=== PATIENT | male | born 1970 | race Hispanic/Latino ===

== ENCOUNTER 2018-08-27 09:08 | Day surgery (SDC) | payer BC ==
[2018-08-27] MEDS ORDERED: SUBLIMAZE IV PRN (10:10)
--- NOTE | 2018-08-27 10:10 | Anesthesia Consultation ---
Anesthesia Consult and Med Hx Date of service: 08/27/18 - Airway Anesthetic Teeth Evaluation: Good ROM Head & Neck: Adequate Mental/Hyoid Distance: Adequate Mallampati Class: Class II Intubation Access Assessment: Probably Good - Pulmonary Exam CTA: Yes - Cardiac Exam Cardiac Exam: RRR - Pre-Operative Health Status ASA Pre-Surgery Classification: ASA2 Proposed Anesthetic Plan: General - Pulmonary Hx Smoking: No (chewing tobacco only; no smoking) Hx Asthma: No Hx Respiratory Symptoms: No Hx Sleep Apnea: No (ALANIS PRE SCREEN LOW RISK.) - Cardiovascular System Hx Hypertension: No (no prior hx however BP elevated in [facility]. Patient does not follow with PCP.) Hx Heart Attack/AMI: No Hx Percutaneous Transluminal Coronary Angioplasty (PTCA): No - Central Nervous System Hx Seizures: No CVA: No Hx Back Pain: Yes (associated with renal stone) - Gastrointestinal Hx Gastroesophageal Reflux Disease: No - Endocrine Hx Renal Disease: No Hx Liver Disease: No Hx Insulin Dependent Diabetes: No Hx Non-Insulin Dependent Diabetes: No Hx Thyroid Disease: No - Other Systems Hx Obesity: No - Additional Comments Anesthesia Medical History Comments: No hx anesthetic complications.
--- NOTE | 2018-08-27 10:10 | Anesthesia Day of Surgery ---
Anesthesia Day of Surgery - Day of Surgery Patient Examined: Yes Patient H&P Reviewed: Yes Patient is NPO: Yes
[2018-08-27] MEDS ORDERED: SUBLIMAZE ONE (10:54)
[2018-08-27] MEDS ORDERED: XYLOCAINE MPF 2% ONE (10:54)
[2018-08-27] MEDS ORDERED: DIPRIVAN 10 MG/ML IV ONE (10:55)
[2018-08-27] MEDS ORDERED: VERSED IV NR (11:00)
[2018-08-27] MEDS ORDERED: LEVAQUIN 500MG/100ML 500 MG/100 ML BAG IV SCH (11:00)
[2018-08-27] MEDS ORDERED: LACTATED RINGERS 1,000 ML IV SCH (11:00)
[2018-08-27] MEDS ORDERED: OMNIPAQUE 300 MG/50 ML (CATH LAB) IV ONE (11:21)
--- NOTE | 2018-08-27 12:08 | Short Stay Summary ---
Short Stay Documentation Date of service: 08/27/18 - History H&P: obtained from office - Allergies and Medications Current Medications: Allergies Penicillins Allergy (Verified 08/26/18 12:09) Seizure Home Medications Medication Instructions Recorded Confirmed Last Taken Type HYDROcodone/ACETAMINOPHEN 1 each PO PRN PRN 08/26/18 08/27/18 08/24/18 09:00 History [Hydrocodone-Acetamin 5-325 mg] Active Medications Fentanyl (Sublimaze) 50 mcg IV Q5MIN PRN PRN Reason: Pain , Severe (7-10) Stop: 08/27/18 20:00 Lactated Ringer's (Lactated Ringers) 1,000 mls @ 100 mls/hr IV DIRECT NICO Last Admin: 08/27/18 11:00 Dose: 100 mls/hr Documented by: Midazolam HCl (Versed) 2 mg IV PREOP NR Stop: 08/27/18 23:59 Last Admin: 08/27/18 11:00 Dose: 2 mg Documented by: - Brief post op/procedure progress note Date of procedure: 08/27/18 Pre-op diagnosis: urethral stone, rt renal stones Post-op diagnosis: same Procedure: cysto, holmium laser & extraction of urethral stones, rt rpg, RT ESWL Anesthesia: GETA Surgeon: SHELBY YI Condition: stable - Hospital course Hospital course: Bactrim,norco,stone,post op info on chart - Disposition Condition at discharge: Stable Disposition: DC-01 TO HOME OR SELFCARE Short Stay Discharge Plan Follow up with: RAMONA CARDOZO MD [Primary Care Provider] - 7 Days
--- NOTE | 2018-08-27 13:14 | Operative Report ---
PREOPERATIVE DIAGNOSES: Urethral stone, right renal calculi x 2. POSTOPERATIVE DIAGNOSES: Urethral stone, right renal calculi x 2. PROCEDURE: Cystoscopy, holmium laser lithotripsy of urethral stone with extraction, right retrograde pyelogram, right extracorporal shock wave lithotripsy. SURGEON: Sunday Ibarra MD ANESTHESIA: General. ESTIMATED BLOOD LOSS: Minimal. FLUIDS: Crystalloid. COMPLICATIONS: No complications. INDICATIONS FOR PROCEDURE: This patient is a 48-year-old gentleman seen in the office with pelvic pain, right flank pain. CT of abdomen and pelvis revealed an 8 mm stone in the urethra as well as two 6 mm stones in her right kidney. Risks, benefits and complications were explained. The patient agreed to proceed with surgical intervention. DESCRIPTION OF PROCEDURE: The patient was taken to the operative suite, placed in a supine position, after adequate general anesthesia, placed in a dorsal lithotomy position, prepped and draped in a sterile fashion. Pancystourethroscopy was performed with 22-[place] cystoscope. Actually, his stone could be palpated in the mid shaft of the urethra. The stone was localized with rigid scope and 200 micron holmium laser fiber was used, starting at 4 moncada, increased to 8 moncada for fragmentation of the stone to allow removal with alligator grasper will be given to the patient. Cystoscopy into the bladder, his prostate was minimally obstructing his bladder. No tumors or stones were noted. Both ureteral orifices were in normal position. Right retrograde pyelogram was obtained with an 8 [place] catheter and 8 mL of contrast, no obstruction; however, he had a filling defect in the upper pole. Lower pole of the renal pelvis is consistent with stones. The scope was removed. Rectal examination was benign. He was then placed in a supine position. Using fluoroscopy, the lower pole stone was localized in 2 planes. Extracorporal shock wave lithotripsy was administered with a maximum kV of 8, 2500 shocks, 5-minute renal pause after 200 shocks. Adequate fragmentation could be appreciated. The patient tolerated the procedure well. He was extubated and taken to recovery room in stable condition. He was given a stone. He will go home with Fernanda Paul. JOB# [id number] [facility]
[2018-08-27 13:21] VITALS: BP 148/95
--- NOTE | 2018-08-27 14:01 | Post Anesthesia Evaluation ---
- Post Anesthesia Evaluation Patient Participated: Yes Airway Patent: Yes Stable Respiratory Function: Yes Nausea/Vomiting: No Temp > 96.8F: Yes Pain Manageable: Yes Adequeate Hydration: Yes Anesthesia Complications: No
== END 2018-08-27 09:09 | disposition home or self-care (01) ==
LOC: OR 09:08
PROVIDERS: ATTEND Urology
DX: N20.2 Calculus of kidney with calculus of ureter (principal); F17.210 Nicotine dependence, cigarettes, uncomplicated; Z88.0 Allergy status to penicillin; Z79.899 Other long term (current) drug therapy
CPT/HCPCS: 50590; 52353; 74420; C1758; C1769; J1956; J2250; J2704; J3010; J7120; Q9967